=== PATIENT | female | born 1945 | race Caucasian/White ===

== ENCOUNTER 2022-01-22 09:50 | Inpatient (IN) | payer MEDICARE, OTHER ==
[~2022-01-22] VITALS: Ht 157.5 cm; Wt 86.2 kg
[2022-01-22 13:52] LABS: Influenza A, PCR NEGATIVE (NEGATIVE); Influenza B, PCR NEGATIVE (NEGATIVE); Resp Syncytial Virus, PCR NEGATIVE (NEGATIVE); SARS-Cov-2 (COVID-19) PCR, MMC NEGATIVE (NEGATIVE)
[2022-01-22 14:20] LABS: BASOPHILS ABSOLUTE AUTO 0.04 K/mm3 (0.00-0.23); BASOPHILS PERCENT AUTO 0 % (0-2); EOSINOPHILS PERCENT AUTO 0 % (0-6); Hematocrit 45.2 % (33.0-51.0); Hemoglobin 15.3 g/dL (11.5-16.0); IMMATURE GRAN ABSOLUTE AUTO 0.02 K/mm3 (0.00-0.10); IMMATURE GRAN PERCENT AUTO 0 % (0-1); LYMPHOCYTES ABSOLUTE AUTO 1.62 K/mm3 (0.84-5.20); LYMPHOCYTES PERCENT AUTO 16 % (21-46); MONOCYTES ABSOLUTE AUTO 0.72 K/mm3 (0.16-1.47); MONOCYTES PERCENT AUTO 7 % (4-13); Mean Corpuscular HGB 34.1 pg (26.0-34.0); Mean Corpuscular HGB Conc 33.8 g/dL (31.5-36.5); Mean Corpuscular Volume 101 fL (80-100); Mean Platelet Volume 10.8 fL (9.1-12.4); NEUTROPHILS ABSOLUTE AUTO 7.65 K/mm3 (1.96-9.15); NEUTROPHILS PERCENT AUTO 76 % (41-73); Platelet Count 161 K/mm3 (150-400); RDW Coefficient Variation 12.4 % (11.7-14.2); RDW Standard Deviation 46.7 fL (35.1-46.3); Red Blood Cell Count 4.49 M/mm3 (3.80-5.20); White Blood Cell Count 10.05 K/mm3 (4.00-11.30)
[2022-01-22 14:34] LABS: International Normalized Ratio 1.06; Prothrombin Time Results 11.1 Sec (9.7-11.5)
[2022-01-22 14:45] LABS: Anion Gap 9 mmol/L (6-16); Blood Urea Nitrogen 12 mg/dL (8-24); Bun/Creatinine Ratio 19.1 (12.0-20.0); CO2, Blood 22 mmol/L (21-32); CPK Creatine Kinase 80 U/L (26-193); Calcium, Blood 8.9 mg/dL (8.5-10.1); Chloride, Blood 112 mmol/L (98-108); Creatinine, Blood 0.63 mg/dL (0.40-1.00); Glomerular Filtration Rate >60 (60-); Glucose, Blood 168 mg/dL (70-99); Sodium, Blood 143 mmol/L (136-145)
--- NOTE | 2022-01-22 18:18 | NUR ---
PT ARRIVED TO UNIT ABOUT 1715, VSS, ON 2L O2 VIA NC. PT STATES SHE FEELS SCARED BUT IS UNSURE WHY. REASSURED THAT SHE IS SAFE AND SURGERY WENT WELL. SPLINT & MOHINDER WRAP TO LEFT ANKLE, ELEVATED ON PILLOW. TOLERATING LIQUIDS AT THIS TIME, DENIES N/V. REPORTS PAIN IN L LEG, MEDICATED PER EMAR. ABLE TO WIGGLE TOES, GOOD CAP REFILL IN LLE, <2 SECONDS. ORIENTED TO ROOM & CALL LIGHT WITHIN REACH. WILL CONTINUE TO MONITOR & REPORT TO ONCOMING RN.
--- NOTE | 2022-01-23 00:42 | NUR ---
PT WITH ONGOING NAUSEA UNRESOLVED WITH USE OF ZOFRAN.I CALLED DR RIZZO AND AM WAITING RETURNED CALL.
[2022-01-23 04:20] LABS: BASOPHILS ABSOLUTE AUTO 0.01 K/mm3 (0.00-0.23); BASOPHILS PERCENT AUTO 0 % (0-2); EOSINOPHILS PERCENT AUTO 0 % (0-6); Hematocrit 40.7 % (33.0-51.0); Hemoglobin 13.6 g/dL (11.5-16.0); IMMATURE GRAN ABSOLUTE AUTO 0.03 K/mm3 (0.00-0.10); IMMATURE GRAN PERCENT AUTO 0 % (0-1); LYMPHOCYTES ABSOLUTE AUTO 0.72 K/mm3 (0.84-5.20); LYMPHOCYTES PERCENT AUTO 7 % (21-46); MONOCYTES ABSOLUTE AUTO 0.69 K/mm3 (0.16-1.47); MONOCYTES PERCENT AUTO 7 % (4-13); Mean Corpuscular HGB 33.9 pg (26.0-34.0); Mean Corpuscular HGB Conc 33.4 g/dL (31.5-36.5); Mean Corpuscular Volume 102 fL (80-100); Mean Platelet Volume 11.5 fL (9.1-12.4); NEUTROPHILS ABSOLUTE AUTO 8.31 K/mm3 (1.96-9.15); NEUTROPHILS PERCENT AUTO 85 % (41-73); Platelet Count 157 K/mm3 (150-400); RDW Coefficient Variation 12.5 % (11.7-14.2); RDW Standard Deviation 47.1 fL (35.1-46.3); Red Blood Cell Count 4.01 M/mm3 (3.80-5.20); White Blood Cell Count 9.76 K/mm3 (4.00-11.30)
[2022-01-23 04:41] LABS: Anion Gap 8 mmol/L (6-16); Blood Urea Nitrogen 13 mg/dL (8-24); Bun/Creatinine Ratio 21.3 (12.0-20.0); CHOL/HDL RATIO 2.7; CO2, Blood 25 mmol/L (21-32); Calcium, Blood 8.4 mg/dL (8.5-10.1); Chloride, Blood 105 mmol/L (98-108); Cholesterol 208 mg/dL (50-200); Creatinine, Blood 0.61 mg/dL (0.40-1.00); Glomerular Filtration Rate >60 (60-); Glucose, Blood 202 mg/dL (70-99); HDL Cholesterol 78 mg/dL (>39); LDL/HDL RATIO 1.5; Low Density Lipoprotein Chol 116 mg/dL (0-110); Sodium, Blood 138 mmol/L (136-145); Triglycerides 70 mg/dL (30-160); Very Low Density Lipoprot Chol 14 mg/dL (6-32)
--- NOTE | 2022-01-23 06:50 | NUR ---
SUMMARY PT HAD BLADDER SCANS DONE TONIGHT.UNABLE TO VOID PER BEDPAN. MOST RECENT SCAN 333 ML.PT OOB FOR BSC- VOIDED 200 ML.PT WAS MAX ASSIST 3 PERSONS, NWB LLE AND NOT BEARING MORE THAN A FRACITON OF HER WEIGHT TO RLE,NOT UNDERSTANDING OF WALKER USE.DIFF WITH SAFETY RISK USING GAIT BELT.WILL ADVISE DASHFT FOR INFO TO STAFF INCLUDING PT/OT.PT HAD NAUSEA TONIGHT WHICH ZOFRAN FAILED TO CONTROL. I OBTAINED ORDERS FOR REGLAN AND IT WAS REPORTED BY PT EFFECTIVE.PT RESTING IN BED.L TOES ARE PINK AND WARM, AND WIGGLE,WITH BRISK REFILL.HX NEUROPATHY
--- NOTE | 2022-01-23 11:05 | NUR ---
DR ADAMS IN TO SEE PT.
--- NOTE | 2022-01-23 16:59 | NUR ---
SUMMARY NO ACUTE CHANGES T/O SHIFT. PT WORKED W/THERAPY. GOT UP TO BSC MULTIPLE TIMES AND SAT IN RECLINER FOR COUPLE HOURS. FEELS LIGHT HEADED AT THIS TIME SO USED BEDPAN TO VOID. MEDICATED PER ORDERS T/O DAY FOR PAIN. CALL LIGHT IN REACH.
--- NOTE | 2022-01-24 05:02 | NUR ---
SHIFT SUMMARY POD2 ORIF OF L ANKLE- SPLINT AND MOHINDER WRAP IN PLACE C/D/I. NO ACUTE CHANGES OVER NIGHT. PT UP WITH 2 PERSON MOD ASSIST WITH FWW AND GB TO BEDSIDE COMMODE. VITAL SIGNS STABLE. NO REPORTS OF PAIN THROUGHOUT SHIFT. TOLERATING PO INTAKE. VOIDING. WILL CONTINUE TO MONITOR AND REPORT TO ONCOMING RN.
--- NOTE | 2022-01-24 17:03 | NUR ---
SUMMARY NO ACUTE CHANGES T/O SHIFT. MEDICATED PT PER ORDERS FOR PAIN T/O SHIFT. PT SAT UP IN RECLINER FOR DAY. PT MEDICATED FOR CONSTIPATION AND HAD UNFORMED BM THIS AFTERNOON. CALL LIGHT IN REACH.
--- NOTE | 2022-01-24 18:59 | NUR ---
REPORT GIVEN TO ONCOMING SHIFT.
[2022-01-25 04:10] LABS: Hematocrit 39.8 % (33.0-51.0); Hemoglobin 13.3 g/dL (11.5-16.0); Mean Corpuscular HGB 34.5 pg (26.0-34.0); Mean Corpuscular HGB Conc 33.4 g/dL (31.5-36.5); Mean Corpuscular Volume 103 fL (80-100); Mean Platelet Volume 10.9 fL (9.1-12.4); Platelet Count 129 K/mm3 (150-400); RDW Coefficient Variation 12.3 % (11.7-14.2); RDW Standard Deviation 46.9 fL (35.1-46.3); Red Blood Cell Count 3.86 M/mm3 (3.80-5.20); White Blood Cell Count 5.94 K/mm3 (4.00-11.30)
[2022-01-25 04:29] LABS: Anion Gap 3 mmol/L (6-16); Blood Urea Nitrogen 10 mg/dL (8-24); Bun/Creatinine Ratio 15.5 (12.0-20.0); CO2, Blood 32 mmol/L (21-32); Calcium, Blood 8.6 mg/dL (8.5-10.1); Chloride, Blood 106 mmol/L (98-108); Creatinine, Blood 0.64 mg/dL (0.40-1.00); Glomerular Filtration Rate >60 (60-); Glucose, Blood 107 mg/dL (70-99); Potassium, Blood 3.7 mmol/L (3.5-5.5); Sodium, Blood 141 mmol/L (136-145)
--- NOTE | 2022-01-25 04:51 | NUR ---
SHIFT SUMMARY A/OX4. POD3 ORIF L ANKLE, SPLINT AND MOHINDER WRAP IN PLACE, C/D/I. PAIN MANAGED WITH PO PAIN MEDICATION PER EMAR. VITAL SIGNS STABLE. VOIDING AND PASSING STOOL. TOLERATING PO INTAKE. UP TO BEDSIDE COMMODE WITH 2 PERSON MOD ASSIST WITH FFW & GB. WILL CONTINUE TO MONITOR AND REPORT TO ONCOMING RN.
--- NOTE | 2022-01-25 12:00 | NUR ---
PT. ADMIT TO ROOM #[id number] AT THIS TIME, ARRIVE VIA GURNEY. ON ROOM AIR, SATS 98%. DENIES PAIN, VERY SLEEPY. DENIES NAUSEA. NASEEM CARE GIVEN PT. A LITTLE BLOODY, NASEEM PAD CHANGED. PATIENT TURN TO SIDE AND IS SLEEPING. AT BEDSIDE.
--- NOTE | 2022-01-25 18:01 | NUR ---
PATIENT UP IN CHAIR MOST OF DAY. TOLERATE WELL AND REPORTED MOVING MUCH BETTER, ABLE TO STAND AND PIVOT. TAKING ONE ROXICODONE Q HOUR FOR L ANKLE PAIN AND PT. VERBALIZE GOOD PAIN CONTROL. ANTICIPATE DISCHARGE TO SNF TOMORROW.
--- NOTE | 2022-01-26 04:32 | NUR ---
SHIFT SUMMARY A/OX4. NO ACUTE CHANGES OVER NIGHT. VSS. PAIN MANAGED WITH PO PAIN MEDICATION. VOIDING AND PASSING STOOL. MOHINDER AND SPLINT ON L ANKLE C.D.I. PLAN IS FOR PT TO GO FACILITY TODAY. WILL CONTINUE TO MONITOR AND REPORT TO ONCOMING RN.
--- NOTE | 2022-01-26 11:14 | NUR ---
Pt. is alert and sitting in recliner. Pts. daughter was just leaving. Pt. is pleasant, and welcomes my visit. Pt. is unsettled about her 's health more than her own. Listen empathetically, and establish rapport. Pt. displays evidence of encouragement, and is looking forward to physical therapy continuing after discharge. Prayed with pt. (specifically for her ). Pt. verbalized gratitude for the wonderful care she has received and for the spiritual care visit.
--- NOTE | 2022-01-26 12:36 | NUR ---
01/26/22 1236 Maylin Michele VERIFICATIONS: EDIT CHART.
[2022-01-26 14:04] LABS: Influenza A, PCR NEGATIVE (NEGATIVE); Influenza B, PCR NEGATIVE (NEGATIVE); Resp Syncytial Virus, PCR NEGATIVE (NEGATIVE); SARS-Cov-2 (COVID-19) PCR, MMC NEGATIVE (NEGATIVE)
--- NOTE | 2022-01-26 15:35 | NUR ---
PT. DISCHARGED TO [facility] VIA TRANSPORT. PAPERWORK AND PT. BELONGINGS SENT WITH PATIENT. PATIENT VERBALIZE COMFORT WITH ONE ROXICODONE. W/C TRANSPORT TO EXIT.
== END 2022-01-26 15:35 | DRG 494 ==
LOC: ER 09:50 → MEDS 13:36 → SURS 17:25
PROVIDERS: Internal Medicine; Orthopaedic Surgery; Student in an Organized Health Care Education/Training Program; ADMIT Internal Medicine
PROC: 0QSH04Z Reposition Left Tibia with Internal Fixation Device, Open Approach (ICD-10-PCS; 2022-01-22)
PROC: 0QSK04Z Reposition Left Fibula with Internal Fixation Device, Open Approach (ICD-10-PCS; principal; 2022-01-22 15:30)
DX: S82.852A Displaced trimalleolar fracture of left lower leg, initial encounter for closed fracture (principal); Z20.822 Contact with and (suspected) exposure to COVID-19; R11.0 Nausea; I10 Essential (primary) hypertension; E78.5 Hyperlipidemia, unspecified; E11.9 Type 2 diabetes mellitus without complications; M54.9 Dorsalgia, unspecified; Z28.21 Immunization not carried out because of patient refusal; G89.29 Other chronic pain; Z85.3 Personal history of malignant neoplasm of breast; Z90.12 Acquired absence of left breast and nipple; Z98.890 Other specified postprocedural states; W19.XXXA Unspecified fall, initial encounter
CPT/HCPCS: 0241U; 28435; 36415; 73590; 73610; 80048; 80061; 82550; 83036; 85025; 85027; 85610; 85730; 86850; 86900; 86901; 93005; 93010; 96374; 96375; 97110; 97161; 97165; 97530; 97535; 99284-25; A9270; C1713; C1769; J0171; J0690; J1100; J1170; J1650; J2250; J2405; J2704; J2710; J2765; J3010; J7030; J7120